=== PATIENT | female | born 1945 | race Hispanic/Latino ===

== ENCOUNTER → 2017-09-19 | Outpatient (CLI) | payer OTHER, MEDICARE ==
[~2017-09-19] MED LIST: ACET-2743 PO; ALEN70TA47 PO; AMLO10TA2 PO; ASPI-1197 PO; ATOR10TA PO; CLOP75TA32 PO; DIAZ2TAB PO; PANT20TA PO
== END | disposition home or self-care (01) ==
LOC: RAH 10:01
PROVIDERS: ATTEND Internal Medicine
DX: Z12.31 Encounter for screening mammogram for malignant neoplasm of breast (principal)
CPT/HCPCS: 77067

== ENCOUNTER → 2017-12-05 | Outpatient (CLI) | payer OTHER, MEDICARE | END | disposition home or self-care (01) | LOC: SHCH 09:18 | PROVIDERS: ATTEND Internal Medicine Cardiovascular Disease | DX: R09.89 Other specified symptoms and signs involving the circulatory and respiratory systems (principal); I73.9 Peripheral vascular disease, unspecified; I65.23 Occlusion and stenosis of bilateral carotid arteries | CPT/HCPCS: 93880; 93925 ==

== ENCOUNTER → 2019-03-19 | Outpatient (CLI) | payer OTHER, MEDICARE ==
[~2019-03-19] MED LIST changes: +ALEN70TA10 PO; -ALEN70TA47 PO; -AMLO10TA2 PO; +AMLO10TA7 PO; +AMLO5TAB9 PO; +LISI-617 PO; +moringa
== END | disposition home or self-care (01) ==
LOC: RAH 13:37
PROVIDERS: ATTEND Internal Medicine
DX: M17.12 Unilateral primary osteoarthritis, left knee (principal)
CPT/HCPCS: 73562

== ENCOUNTER 2019-03-20 08:48 | Observation (INO) | payer OTHER, MEDICARE ==
[~2019-03-20] VITALS: Ht 149.9 cm; Wt 64.0 kg
[~2019-03-20 08:48] MED LIST changes: -AMLO5TAB9 PO; -LISI-617 PO; -moringa
[2019-03-20] MEDS ORDERED: SODIUM CHLORIDE 0.9% 250 ML IV ONE (10:08)
[2019-03-20 10:47] LABS: APPEARANCE,URINE CLEAR (CLEAR); BILIRUBIN,URINE NEGATIVE (NEGATIVE); COLOR,URINE YELLOW (YELLOW); GLUCOSE, URINE (UA) NEGATIVE (NEGATIVE); KETONES,URINE NEGATIVE (NEGATIVE); LEUKOCYTE ESTERASE ,URINE NEGATIVE (NEGATIVE); NITRATE,URINE NEGATIVE (NEGATIVE); OCCULT BLOOD,URINE NEGATIVE (NEGATIVE); PROTEIN,URINE NEGATIVE (NEGATIVE); UROBILINOGEN,URINE 0.2 mg/dL (0.2-1.0)
[2019-03-20] MEDS ORDERED: CEFTRIAXONE SODIUM 1 GM ONE (11:20)
[2019-03-20] MEDS ORDERED: DiphenhydrAMINE HCL 50 MG/ML VIAL IV PRN (12:15)
[2019-03-20] MEDS ORDERED: ACETAMINOPHEN 325 MG TAB PO PRN ×2 (12:15)
[2019-03-20] MEDS: CEFTRIAXONE SODIUM 1 GM IVP SCH (12:15)
[2019-03-20] MEDS ORDERED: GUAIFENESIN-DM 200/20 MG 10 ML PO PRN (12:15)
[2019-03-20] MEDS ORDERED: ONDANSETRON HCL 4 MG/2 ML VIAL IV PRN (12:15)
[2019-03-20] MEDS ORDERED: MAG HYDROX/AL HYDROX/SIMETH ES 30 ML SUSP UDCUP PO PRN (12:15)
[2019-03-20] MEDS ORDERED: ZOLPIDEM TARTRATE 5 MG TAB PO PRN (12:15)
[2019-03-20] MEDS ORDERED: LACTULOSE 20 GM/30 ML UDCUP PO PRN (12:15)
[2019-03-20] MEDS ORDERED: DIPHENHYDRAMINE HCL 25 MG CAPSULE PO PRN (12:15)
[2019-03-20] MEDS ORDERED: NITROGLYCERIN 0.4 MG SL TAB SL PRN (12:15)
[2019-03-20] MEDS ORDERED: LIDOCAINE HCL-MPF 1% 2ML VIAL IVP PRN ×2 (12:30)
[2019-03-20] MEDS ORDERED: POTASSIUM CHLORIDE 10MEQ/100ML 100 ML IV PRN ×2 (12:30)
[2019-03-20] MEDS ORDERED: POTASSIUM CHLORIDE 20 MEQ ERTAB PO PRN (12:30)
[2019-03-20] MEDS ORDERED: POTASSIUM CHLORIDE 10% ELIXIR 20 MEQ/15 ML UDCUP PO PRN (12:30)
[2019-03-20 13:44] LABS: EOSINOPHILS % (AUTO) 2.2 % (0.0-8.0); LYMPHOCYTES % (AUTO) 29.4 % (21.0-51.0); MEAN CORPUSCULAR HEMOGLOBIN 30.3 pg (27.0-33.0); MEAN CORPUSCULAR HGB CONC 33.6 g/dL (32.0-36.0); MEAN CORPUSCULAR VOLUME 90.2 fL (79-99); MONOCYTES % (AUTO) 10.5 % (3.0-13.0); NEUTROPHILS % (AUTO) 56.9 % (40.0-77.0); PLATELET COUNT (AUTO) 258 K/uL (130-400); RED BLOOD CELL COUNT(AUTO) 4.55 MIL/uL (4.00-5.50); RED CELL DISTRIBUTION WIDTH 15.5 % (11.0-15.5); WHITE BLOOD COUNT (AUTO) 5.8 K/uL (4.8-10.8)
[2019-03-20 13:50] LABS: CREATININE 0.5 mg/dL (0.5-1.5); POTASSIUM 3.8 mmol/L (3.5-5.1)
[2019-03-20 13:55] LABS: ALBUMIN 3.8 g/dL (3.5-5.0); BILIRUBIN,TOTAL 0.3 mg/dL (0.2-1.0); TOTAL PROTEIN, SERUM 6.8 g/dL (6.0-8.3)
[2019-03-20 14:16] VITALS: BP 149/75
[2019-03-20] MEDS: SODIUM CHLORIDE 0.9% 1000ML 1,000 ML IV SCH (14:25)
[2019-03-20] MEDS ORDERED: LISI-617 PO (14:31)
[2019-03-20] MEDS ORDERED: AMLO5TAB9 PO (14:31)
[2019-03-20] MEDS ORDERED: moringa (14:33)
[2019-03-20 16:39] VITALS: BP 161/75
--- NOTE | 2019-03-20 17:55 | NUR ---
CLARIFIED ORDER FOR US RENAL SONO: DR. SOTELO STATED WAS TO DETERMINE IF PT WAS RETAINING URINE. ORDER'S REC'D TO CANCEL SONO AND ORDER POST VOID BLADDER SCAN INSTEAD. 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
--- NOTE | 2019-03-20 18:00 | NUR ---
POST VOID BLADDER SCAN OF [address] SOTELO. NO NEW ORDERS.
[2019-03-20 19:49] VITALS: BP 113/51
[2019-03-20] MEDS: FAMOTIDINE 20MG TAB 20 MG TAB PO SCH (21:19)
[2019-03-21] VITALS (9 sets, daily range): BP systolic 70–198; BP diastolic 50–102
[2019-03-21] MEDS: SODIUM CHLORIDE 0.9% 1000ML 1,000 ML IV SCH ×4 (00:54→20:29)
[2019-03-21] MEDS: CEFTRIAXONE SODIUM 1 GM IVP SCH ×3 (00:54→23:31)
[2019-03-21] MEDS: ENOXAPARIN SODIUM 30 MG/0.3 ML SQ SCH (08:57)
[2019-03-21] MEDS: FAMOTIDINE 20MG TAB 20 MG TAB PO SCH ×2 (08:57→20:28)
[2019-03-22 04:00] VITALS: BP 94/66
[2019-03-22 05:45] LABS: BASOPHILS % (AUTO) 0.9 % (0.0-5.0); EOSINOPHILS % (AUTO) 3.3 % (0.0-8.0); HEMATOCRIT 41.8 % (36-48); LYMPHOCYTES % (AUTO) 30.9 % (21.0-51.0); MEAN CORPUSCULAR HEMOGLOBIN 30.2 pg (27.0-33.0); MEAN CORPUSCULAR HGB CONC 33.1 g/dL (32.0-36.0); MEAN CORPUSCULAR VOLUME 91.4 fL (79-99); MONOCYTES % (AUTO) 11.7 % (3.0-13.0); NEUTROPHILS % (AUTO) 53.2 % (40.0-77.0); PLATELET COUNT (AUTO) 216 K/uL (130-400); RED BLOOD CELL COUNT(AUTO) 4.57 MIL/uL (4.00-5.50); RED CELL DISTRIBUTION WIDTH 15.5 % (11.0-15.5); WHITE BLOOD COUNT (AUTO) 5.9 K/uL (4.8-10.8)
[2019-03-22 05:55] LABS: CREATININE 0.7 mg/dL (0.5-1.5); POTASSIUM 3.4 mmol/L (3.5-5.1)
[2019-03-22 08:11] VITALS: BP 132/67
[2019-03-22] MEDS: FAMOTIDINE 20MG TAB 20 MG TAB PO SCH (08:27)
[2019-03-22] MEDS: ENOXAPARIN SODIUM 30 MG/0.3 ML SQ SCH (08:28)
--- NOTE | 2019-03-22 09:00 | NUR ---
INITIAL- DC PLANNING SPOKE WITH PT, GRAND DAUGHTER, AND BROTHER IN ROOM- PT HIGH FALL RISK, Cami BILL, LIVES ALONE , NO STAIRS REQUESTING P-TX W HOME HEALTH OR IN SNF Addendum: 03/22/19 at 1243 by JULIA KIMBALL RN CM Amended: Links added.
[2019-03-22 11:25] VITALS: BP 156/70
[2019-03-22] MEDS: CEFTRIAXONE SODIUM 1 GM IVP SCH (11:46)
--- NOTE | 2019-03-22 13:54 | NUR ---
[facility] Kai [facility]. Kai contacted Karen,pt advocate who will assist pt.
--- NOTE | 2019-03-22 14:19 | NUR ---
FAXED REFERRAL INCLUDING PASSR TO [facility]. WILL POST TO CHART AND INFORM PRIMARY RN. SPOKE TO REP HAMILTON FROM [facility]. SHE WILL BE WAITING FOR THE AUTH RQUEST FORM [facility] Addendum: 03/22/19 at 1421 by JULIA KIMBALL RN Amended: Links added.
[2019-03-22 16:11] VITALS: BP 176/78
--- NOTE | 2019-03-22 16:57 | NUR ---
LIANNE MCWILLIAMS'[facility] CALL TO [facility] AT 1654. CALL BACK AT 1657- LIANNE MCWILLIAMS'Lawrence. ADVISED PRIMARY RN AND GAVE NUMBERS TO CALL AT 1730. WILL TRAVEL BY FACILITY [facility] Addendum: 03/23/19 at 0853 by JULIA KIMBALL RN CM Amended: Links added.
--- NOTE | 2019-03-22 17:19 | NUR ---
REPORT TELEPHONE REPORT WAS CALLED IN TO KLAUDIA NAPIER AT [facility]. THEY WILL SEND BARBER INSTRUCTOR TO PICK PATIENT UP FOR TRANSPORT.
--- NOTE | 2019-03-22 17:20 | NUR ---
INSTRUCTIONS DISCHARGE INSTRUCTIONS GIVEN TO PATIENT AND FAMILY USING TEACH BACK. IV REMOVED WITH TIP INTACT. DIRECT PRESSURE APPLIED UNTIL BLEEDING CONTROLLED THEN SITE COVERED WITH GAUZE AND SECURED WITH TAPE. NO QUESTIONS OR CONCERNS VOICED.
[2019-03-23] MEDS ORDERED: CLOPIDOGREL BISULFATE 75 MG TAB PO SCH (09:00)
[2019-03-23] MEDS ORDERED: LISINOPRIL 5 MG TABLET PO SCH (09:00)
[2019-03-23] MEDS ORDERED: AMLODIPINE BESYLATE 5 MG TAB PO SCH (09:00)
[2019-03-23] MEDS ORDERED: ASPIRIN 81MG TAB.CHEW PO SCH (09:00)
== END 2019-03-22 18:10 ==
LOC: EDH 08:48 → EDHIP 12:14 → 4AH 13:50
PROVIDERS: ADMIT Family Medicine; ATTEND Family Medicine
DX: N39.0 Urinary tract infection, site not specified (principal); E44.0 Moderate protein-calorie malnutrition; E78.5 Hyperlipidemia, unspecified; I10 Essential (primary) hypertension; I71.4 Abdominal aortic aneurysm, without rupture; I95.1 Orthostatic hypotension; M43.10 Spondylolisthesis, site unspecified; Z82.49 Family history of ischemic heart disease and other diseases of the circulatory system; Z83.3 Family history of diabetes mellitus; Z89.611 Acquired absence of right leg above knee; Z90.710 Acquired absence of both cervix and uterus; Z79.899 Other long term (current) drug therapy
CPT/HCPCS: 36415 ×2; 74176; 80048; 80053; 81003; 82948; 85025 ×2; 87040; 87088; 87804 ×2; 93970; 94760; 96372 ×2; 96374; 96376 ×2; 97039 ×3; 97161; 97530; 99284; A4606; G0378 ×54; G8979; G8981; G8982; G8983; J0696 ×5; J1650 ×2; J7030 ×3

== ENCOUNTER → 2019-07-07 | Outpatient (CLI) | payer OTHER, MEDICARE ==
[~2019-07-07] MED LIST changes: -ACET-2743 PO; -AMLO10TA7 PO; +AMLO5TAB9 PO; -ATOR10TA PO; -DIAZ2TAB PO; +LISI-617 PO; -PANT20TA PO; +moringa
== END | disposition home or self-care (01) ==
LOC: SHCH 10:37
PROVIDERS: ATTEND Internal Medicine Cardiovascular Disease
DX: I35.8 Other nonrheumatic aortic valve disorders (principal); I65.23 Occlusion and stenosis of bilateral carotid arteries; R01.1 Cardiac murmur, unspecified; Z98.61 Coronary angioplasty status
CPT/HCPCS: 93306; 93880

== ENCOUNTER → 2020-10-26 | Outpatient (CLI) | payer OTHER, MEDICARE ==
[~2020-10-26] MED LIST changes: -ALEN70TA10 PO; +ALEN70TA80 PO; +AMLO-257 PO; -AMLO5TAB9 PO; -LISI-617 PO; +LISI-809 PO
== END | disposition home or self-care (01) ==
LOC: SHCH 08:38
PROVIDERS: ATTEND Internal Medicine Cardiovascular Disease
DX: I65.23 Occlusion and stenosis of bilateral carotid arteries (principal); I73.9 Peripheral vascular disease, unspecified; R01.1 Cardiac murmur, unspecified
CPT/HCPCS: 93306; 93356; 93880; 93926

== ENCOUNTER 2021-10-26 10:25 | Inpatient (IN) | payer OTHER, MEDICARE ==
[~2021-10-26] VITALS: Ht 149.9 cm; Wt 59.6 kg
[~2021-10-26 10:25] MED LIST changes: -LISI-809 PO; +LISI5TAB21 PO
[2021-10-26 11:01] LABS: BASOPHILS % (AUTO) 0.8 % (0.0-5.0); EOSINOPHILS % (AUTO) 0.5 % (0.0-8.0); HEMATOCRIT 23.5 % (36-48); LYMPHOCYTES % (AUTO) 18.9 % (21.0-51.0); MEAN CORPUSCULAR HGB CONC 28.1 g/dL (32.0-36.0); MEAN CORPUSCULAR VOLUME 67.5 fL (79-99); MONOCYTES % (AUTO) 9.8 % (3.0-13.0); NEUTROPHILS % (AUTO) 69.7 % (40.0-77.0); PLATELET COUNT (AUTO) 463 K/uL (130-400); RED BLOOD CELL COUNT(AUTO) 3.48 MIL/uL (4.00-5.50); RED CELL DISTRIBUTION WIDTH 20.7 % (11.0-15.5); WHITE BLOOD COUNT (AUTO) 6.1 K/uL (4.8-10.8)
[2021-10-26 11:11] LABS: CREATININE 0.7 mg/dL (0.5-1.5); POTASSIUM 4.2 mmol/L (3.5-5.1)
[2021-10-26 11:16] LABS: ALBUMIN 3.6 g/dL (3.5-5.0); BILIRUBIN,TOTAL 0.2 mg/dL (0.2-1.0); TOTAL PROTEIN, SERUM 6.9 g/dL (6.0-8.3)
[2021-10-26 12:22] LABS: INR 1.03 (0.85-1.15); PROTHROMBIN TIME 11.2 SEC (9.6-11.6)
[2021-10-26 12:24] LABS: PARTIAL THROMBOPLASTIN TIME 25.4 SEC (26.3-35.5)
[2021-10-26] MEDS ORDERED: ONDANSETRON 4MG INJ ONE (12:42)
[2021-10-26] MEDS ORDERED: MORPHINE 2 MG SYG ONE (12:43)
[2021-10-26] MEDS ORDERED: VANCOMYCIN 1G/250ML KIT 250 ML IV ONE (12:43)
[2021-10-26] MEDS ORDERED: ZOSYN 3.375GM+NS 50ML 50 ML ONE (12:43)
[2021-10-26] MEDS ORDERED: 0.9%NACL 50ML 50 ML IV ONE (12:44)
[2021-10-26] MEDS ORDERED: 0.9% NACL 500ML IV.SOLN 500 ML IV ONE ×3 (12:45→14:23)
[2021-10-26] MEDS ORDERED: ZOSYN 3.375GM +NS 50ML IV SCH (13:00)
[2021-10-26] MEDS ORDERED: VANCOMYCIN 1G VIAL IVPB ONE (13:00)
[2021-10-26] MEDS ORDERED: ONDANSETRON 4MG INJ IVP ONE (13:00)
[2021-10-26] MEDS ORDERED: MORPHINE 2 MG SYG IVP ONE (13:00)
[2021-10-26] MEDS ORDERED: IOHEXOL 350 MG/ML 100ML INFUS..BTL IV ONE (13:21)
[2021-10-26] MEDS ORDERED: PANTOPRAZOLE 40 MG/VIAL IVP ONE (17:00)
[2021-10-26] MEDS ORDERED: VANCOMYCIN 750MG VIAL IVPB SCH (17:30)
[2021-10-26 17:50] LABS: RETICULOCYTE % (AUTO) 1.87 % (0.42-2.23)
[2021-10-26 18:02] LABS: HEMOGLOBIN A1C 6.5 % (4.0-6.0)
[2021-10-26] MEDS ORDERED: PANTOPRAZOLE 40 MG/VIAL ONE (18:12)
[2021-10-26] MEDS: CEFEPIME HCL 2 GM VIAL IVP SCH (18:14)
[2021-10-26 19:01] LABS: HEMATOCRIT 29.9 % (36-48)
[2021-10-26] MEDS: PANTOPRAZOLE 40 MG/VIAL IVP SCH (22:12)
[2021-10-26] MEDS: IRON SUCROSE COMPLEX 100 MG in 0.9%NACL 50ML 50 ML IV SCH (22:12)
[2021-10-26] MEDS: INSULIN HUMULIN R 100 UNIT/ML 3ML SQ SCH (22:12)
[2021-10-27] MEDS ORDERED: VANCOMYCIN PROTOCOL PER PHARMACY IV SCH
[2021-10-27] MEDS: HYDROCODONE/ACETAMINOPHEN 5/325 MG TAB PO PRN ×5 (00:05→22:25)
[2021-10-27] MEDS ORDERED: 0.9%NACL 50ML 50 ML IV ONE (06:15)
[2021-10-27] MEDS: CEFEPIME HCL 2 GM VIAL IVP SCH ×2 (06:18→16:54)
[2021-10-27] MEDS: PANTOPRAZOLE 40 MG/VIAL IVP SCH ×2 (08:26→22:17)
[2021-10-27] MEDS: IRON SUCROSE COMPLEX 100 MG in 0.9%NACL 50ML 50 ML IV SCH (08:26)
[2021-10-27] MEDS: INSULIN HUMULIN R 100 UNIT/ML 3ML SQ SCH ×4 (08:26→21:00)
[2021-10-27] MEDS: HYDROMORPHONE 0.5 MG SYG (0.5MG/0.5ML) IVP PRN (08:28)
[2021-10-27 11:52] LABS: HEMATOCRIT 25.9 % (36-48)
[2021-10-27 12:17] LABS: CREATININE 0.6 mg/dL (0.5-1.5); POTASSIUM 3.8 mmol/L (3.5-5.1)
[2021-10-27] MEDS: NYSTATIN 30 GM CREAM.GM. TP SCH (12:30)
[2021-10-27] MEDS: 0.9% NACL 250ML 250 ML IV SCH (13:24)
[2021-10-27] MEDS: VANCOMYCIN 750MG VIAL IVPB SCH (13:24)
[2021-10-27] MEDS ORDERED: CLOPIDOGREL 75MG TAB ONE (18:24)
[2021-10-27] MEDS ORDERED: CLOPIDOGREL 75MG TAB PO ONE (18:30)
[2021-10-27 20:00] VITALS: BP 128/48
[2021-10-27 23:17] VITALS: BP 111/55
[2021-10-28 03:36] VITALS: BP 107/66
[2021-10-28] MEDS: CEFEPIME HCL 2 GM VIAL IVP SCH ×2 (06:27→17:40)
[2021-10-28] MEDS: HYDROMORPHONE 0.5 MG SYG (0.5MG/0.5ML) IVP PRN (06:34)
[2021-10-28 07:00] VITALS: BP 138/69
[2021-10-28] MEDS: INSULIN HUMULIN R 100 UNIT/ML 3ML SQ SCH ×4 (07:30→21:00)
[2021-10-28] MEDS: PANTOPRAZOLE 40 MG/VIAL IVP SCH ×2 (08:12→21:39)
[2021-10-28] MEDS: NYSTATIN 30 GM CREAM.GM. TP SCH (08:14)
[2021-10-28] MEDS ORDERED: CLOPIDOGREL 75MG TAB PO SCH (09:00)
[2021-10-28] MEDS: IRON SUCROSE COMPLEX 100 MG/5 ML VIAL IVP SCH (09:00)
[2021-10-28 11:00] VITALS: BP 145/75
[2021-10-28] MEDS: HYDROCODONE/ACETAMINOPHEN 5/325 MG TAB PO PRN ×2 (11:36→17:40)
[2021-10-28 15:00] VITALS: BP 112/60
[2021-10-28] MEDS: VANCOMYCIN 750MG VIAL IVPB SCH (15:24)
[2021-10-28 16:18] LABS: HEMATOCRIT 26.8 % (36-48); MEAN CORPUSCULAR HEMOGLOBIN 20.7 pg (27.0-33.0); MEAN CORPUSCULAR HGB CONC 29.1 g/dL (32.0-36.0); MEAN CORPUSCULAR VOLUME 71.1 fL (79-99); PLATELET COUNT (AUTO) 326 K/uL (130-400); RED BLOOD CELL COUNT(AUTO) 3.77 MIL/uL (4.00-5.50); RED CELL DISTRIBUTION WIDTH 22.1 % (11.0-15.5); WHITE BLOOD COUNT (AUTO) 6.9 K/uL (4.8-10.8)
[2021-10-28 16:35] LABS: POTASSIUM 3.6 mmol/L (3.5-5.1)
[2021-10-28 16:36] LABS: CREATININE 0.5 mg/dL (0.5-1.5)
[2021-10-28 17:08] LABS: EOSINOPHILS % (MANUAL) 3 % (1-6); LYMPHOCYTES % (MANUAL) 13 % (22-44); MAN.DIFF COMMENT-IMPRESSION MANUAL DIFFERENTIAL; MONOCYTES % (MANUAL) 25 % (2-9); PLATELET MORPHOLOGY COMMENT ADEQUATE; SEGMENTED NEUTROPHILS % 59 % (40-70)
[2021-10-28 20:00] VITALS: BP 120/48
[2021-10-28 23:46] VITALS: BP 134/61
[2021-10-29 04:31] VITALS: BP 145/73
[2021-10-29 04:33] LABS: EOSINOPHILS % (AUTO) 9.3 % (0.0-8.0); HEMATOCRIT 26.5 % (36-48); MEAN CORPUSCULAR HEMOGLOBIN 20.4 pg (27.0-33.0); MEAN CORPUSCULAR HGB CONC 28.7 g/dL (32.0-36.0); NEUTROPHILS % (AUTO) 68.3 % (40.0-77.0); PLATELET COUNT (AUTO) 309 K/uL (130-400); RED BLOOD CELL COUNT(AUTO) 3.73 MIL/uL (4.00-5.50); RED CELL DISTRIBUTION WIDTH 22.5 % (11.0-15.5); WHITE BLOOD COUNT (AUTO) 7.1 K/uL (4.8-10.8)
[2021-10-29 04:48] LABS: CREATININE 0.5 mg/dL (0.5-1.5); POTASSIUM 3.5 mmol/L (3.5-5.1)
[2021-10-29] MEDS: CEFEPIME HCL 2 GM VIAL IVP SCH ×2 (04:57→18:06)
[2021-10-29] MEDS: HYDROMORPHONE 0.5 MG SYG (0.5MG/0.5ML) IVP PRN ×2 (04:58→19:51)
[2021-10-29 07:30] VITALS: BP 128/62
[2021-10-29] MEDS: INSULIN HUMULIN R 100 UNIT/ML 3ML SQ SCH ×4 (07:30→19:45)
[2021-10-29] MEDS: PANTOPRAZOLE 40 MG/VIAL IVP SCH ×2 (09:28→19:44)
[2021-10-29] MEDS: IRON SUCROSE COMPLEX 100 MG/5 ML VIAL IVP SCH (09:28)
[2021-10-29] MEDS: NYSTATIN 30 GM CREAM.GM. TP SCH (09:29)
[2021-10-29 11:00] VITALS: BP 128/48
[2021-10-29] MEDS: CYANOCOBALAMIN (VITAMIN B-12) 1000 MCG/ML 1ML VIAL IM SCH (15:03)
[2021-10-29] MEDS: VANCOMYCIN 750MG VIAL IVPB SCH (15:03)
[2021-10-29 16:30] VITALS: BP 136/58
[2021-10-29 20:28] VITALS: BP 147/61
[2021-10-29] MEDS: HYDROCODONE/ACETAMINOPHEN 5/325 MG TAB PO PRN (22:32)
[2021-10-30] VITALS (14 sets, daily range): BP systolic 116–169; BP diastolic 40–101
[2021-10-30 04:08] LABS: BASOPHILS % (AUTO) 0.2 % (0.0-5.0); EOSINOPHILS % (AUTO) 10.8 % (0.0-8.0); HEMATOCRIT 27.1 % (36-48); LYMPHOCYTES % (AUTO) 12.8 % (21.0-51.0); MEAN CORPUSCULAR HEMOGLOBIN 20.5 pg (27.0-33.0); MEAN CORPUSCULAR HGB CONC 28.4 g/dL (32.0-36.0); MEAN CORPUSCULAR VOLUME 72.3 fL (79-99); NEUTROPHILS % (AUTO) 60.7 % (40.0-77.0); PLATELET COUNT (AUTO) 306 K/uL (130-400); RED BLOOD CELL COUNT(AUTO) 3.75 MIL/uL (4.00-5.50); RED CELL DISTRIBUTION WIDTH 23.7 % (11.0-15.5); WHITE BLOOD COUNT (AUTO) 5.5 K/uL (4.8-10.8)
[2021-10-30 04:18] LABS: % IRON SATURATION 6.3 % (22-44)
[2021-10-30 04:27] LABS: CREATININE 0.5 mg/dL (0.5-1.5); POTASSIUM 3.1 mmol/L (3.5-5.1)
[2021-10-30] MEDS: CEFEPIME HCL 2 GM VIAL IVP SCH ×2 (04:49→16:37)
[2021-10-30] MEDS: INSULIN HUMULIN R 100 UNIT/ML 3ML SQ SCH ×4 (05:22→20:24)
[2021-10-30] MEDS ORDERED: POTASSIUM CHLORIDE 20MEQ/100ML 100 ML IV PRN (07:30)
[2021-10-30] MEDS ORDERED: POTASSIUM CHLORIDE 10% ELIXIR 20 MEQ/15 ML UDCUP PO PRN (07:30)
[2021-10-30] MEDS ORDERED: LIDOCAINE HCL-MPF 1% 2ML VIAL IV PRN (07:30)
[2021-10-30] MEDS: ASCORBIC ACID 500 MG TAB PO SCH (09:09)
[2021-10-30] MEDS: IRON SUCROSE COMPLEX 100 MG/5 ML VIAL IVP SCH (09:09)
[2021-10-30] MEDS: PANTOPRAZOLE 40 MG/VIAL IVP SCH (09:09)
[2021-10-30] MEDS: ZINC SULFATE 220 CAPSULE PO SCH (09:09)
[2021-10-30] MEDS: CYANOCOBALAMIN (VITAMIN B-12) 1000 MCG/ML 1ML VIAL IM SCH (09:10)
[2021-10-30] MEDS: NYSTATIN 30 GM CREAM.GM. TP SCH (09:11)
[2021-10-30] MEDS: HYDROMORPHONE 0.5 MG SYG (0.5MG/0.5ML) IVP PRN (11:33)
[2021-10-30] MEDS ORDERED: PROPOFOL 10 MG/ML 20ML VIAL IV ONE (13:05)
[2021-10-30] MEDS ORDERED: GLYCOPYRROLATE 0.2 MG/ML 5 ML VIAL ONE (13:10)
[2021-10-30] MEDS: VANCOMYCIN 750MG VIAL IVPB SCH (14:17)
[2021-10-30] MEDS: KCL 20 MEQ ERTAB PO PRN ×3 (16:38→18:13)
[2021-10-30] MEDS: HYDROCODONE/ACETAMINOPHEN 5/325 MG TAB PO PRN (19:54)
[2021-10-31] VITALS (7 sets, daily range): BP systolic 115–159; BP diastolic 45–74
[2021-10-31] MEDS: CEFEPIME HCL 2 GM VIAL IVP SCH (04:11)
[2021-10-31] MEDS: HYDROMORPHONE 0.5 MG SYG (0.5MG/0.5ML) IVP PRN (04:12)
[2021-10-31 04:33] LABS: BASOPHILS % (AUTO) 0.2 % (0.0-5.0); EOSINOPHILS % (AUTO) 6.1 % (0.0-8.0); HEMATOCRIT 28.5 % (36-48); LYMPHOCYTES % (AUTO) 7.5 % (21.0-51.0); MEAN CORPUSCULAR HEMOGLOBIN 20.8 pg (27.0-33.0); MEAN CORPUSCULAR HGB CONC 28.4 g/dL (32.0-36.0); MEAN CORPUSCULAR VOLUME 73.1 fL (79-99); MONOCYTES % (AUTO) 10.6 % (3.0-13.0); NEUTROPHILS % (AUTO) 75.2 % (40.0-77.0); PLATELET COUNT (AUTO) 287 K/uL (130-400); RED CELL DISTRIBUTION WIDTH 24.6 % (11.0-15.5); WHITE BLOOD COUNT (AUTO) 8.1 K/uL (4.8-10.8)
[2021-10-31 05:26] LABS: CREATININE 0.6 mg/dL (0.5-1.5)
[2021-10-31] MEDS: INSULIN HUMULIN R 100 UNIT/ML 3ML SQ SCH ×4 (05:55→21:45)
[2021-10-31] MEDS: ZINC SULFATE 220 CAPSULE PO SCH (09:14)
[2021-10-31] MEDS: NYSTATIN 30 GM CREAM.GM. TP SCH (09:14)
[2021-10-31] MEDS: PANTOPRAZOLE 40 MG TAB DR PO SCH (09:14)
[2021-10-31] MEDS: IRON SUCROSE COMPLEX 100 MG/5 ML VIAL IVP SCH (09:14)
[2021-10-31] MEDS: ASCORBIC ACID 500 MG TAB PO SCH (09:14)
[2021-10-31] MEDS: CYANOCOBALAMIN (VITAMIN B-12) 1000 MCG/ML 1ML VIAL IM SCH (09:15)
[2021-10-31] MEDS: VANCOMYCIN 750MG VIAL IVPB SCH (13:56)
[2021-10-31] MEDS: 0.9% NACL 250ML 250 ML IV SCH (13:57)
[2021-10-31] MEDS: MEROPENEM 1 GM VIAL IVP SCH ×2 (16:59→23:38)
[2021-10-31] MEDS: HYDROCODONE/ACETAMINOPHEN 5/325 MG TAB PO PRN (23:39)
[2021-11-01 04:01] LABS: BASOPHILS % (AUTO) 0.3 % (0.0-5.0); HEMATOCRIT 28.2 % (36-48); LYMPHOCYTES % (AUTO) 15.2 % (21.0-51.0); MEAN CORPUSCULAR HEMOGLOBIN 20.9 pg (27.0-33.0); MEAN CORPUSCULAR HGB CONC 28.7 g/dL (32.0-36.0); MEAN CORPUSCULAR VOLUME 72.9 fL (79-99); MONOCYTES % (AUTO) 16.4 % (3.0-13.0); NEUTROPHILS % (AUTO) 59.6 % (40.0-77.0); PLATELET COUNT (AUTO) 268 K/uL (130-400); RED BLOOD CELL COUNT(AUTO) 3.87 MIL/uL (4.00-5.50); RED CELL DISTRIBUTION WIDTH 25.4 % (11.0-15.5); WHITE BLOOD COUNT (AUTO) 6.5 K/uL (4.8-10.8)
[2021-11-01 04:12] LABS: CREATININE 0.6 mg/dL (0.5-1.5); POTASSIUM 3.4 mmol/L (3.5-5.1)
[2021-11-01 04:16] VITALS: BP 155/68
[2021-11-01] MEDS: INSULIN HUMULIN R 100 UNIT/ML 3ML SQ SCH ×2 (05:58→11:30)
[2021-11-01 08:03] VITALS: BP 147/81
[2021-11-01] MEDS: ASCORBIC ACID 500 MG TAB PO SCH (09:17)
[2021-11-01] MEDS: PANTOPRAZOLE 40 MG TAB DR PO SCH (09:18)
[2021-11-01] MEDS: CYANOCOBALAMIN (VITAMIN B-12) 1000 MCG/ML 1ML VIAL IM SCH (09:18)
[2021-11-01] MEDS: IRON SUCROSE COMPLEX 100 MG/5 ML VIAL IVP SCH (09:18)
[2021-11-01] MEDS: ZINC SULFATE 220 CAPSULE PO SCH (09:18)
[2021-11-01] MEDS: MEROPENEM 1 GM VIAL IVP SCH ×2 (09:19→14:37)
[2021-11-01] MEDS: NYSTATIN 30 GM CREAM.GM. TP SCH (09:21)
[2021-11-01 11:12] VITALS: BP 143/74
[2021-11-01] MEDS ORDERED: EPOETIN ALFA-EPBX (NON-ESRD) 10,000 UNIT/ML VIAL SQ SCH (13:00)
[2021-11-01] MEDS ORDERED: MORPHINE 4 MG SYG IV PRN (13:00)
[2021-11-01] MEDS ORDERED: LISINOPRIL 10 MG TABLET PO SCH (13:00)
[2021-11-01] MEDS ORDERED: KCL 20 MEQ ERTAB PO SCH (13:00)
[2021-11-01] MEDS ORDERED: MORPHINE 2 MG SYG IVP PRN ×2 (13:00→13:30)
[2021-11-01] MEDS ORDERED: AMLODIPINE 5 MG TAB PO SCH (13:00)
[2021-11-01 16:28] VITALS: BP 121/86
[2021-11-01] MEDS ORDERED: SODIUM HYPOCHLORITE 0.125% 473 ML SOLUTION TP SCH (21:00)
== END 2021-11-01 18:19 | DRG 299 ==
LOC: EDH 10:25 → EDHIP 17:04 → 4AH 10-27 19:42
PROVIDERS: ADMIT Internal Medicine; ATTEND Internal Medicine
PROC: 30233N1 Transfusion of Nonautologous Red Blood Cells into Peripheral Vein, Percutaneous Approach (ICD-10-PCS; 2021-10-26)
PROC: 0DJ08ZZ Inspection of Upper Intestinal Tract, Via Natural or Artificial Opening Endoscopic (ICD-10-PCS; principal; 2021-10-30)
DX: E11.52 Type 2 diabetes mellitus with diabetic peripheral angiopathy with gangrene (principal); K22.6 Gastro-esophageal laceration-hemorrhage syndrome; L97.329 Non-pressure chronic ulcer of left ankle with unspecified severity; D62 Acute posthemorrhagic anemia; L03.116 Cellulitis of left lower limb; I70.262 Atherosclerosis of native arteries of extremities with gangrene, left leg; E87.1 Hypo-osmolality and hyponatremia; Z16.24 Resistance to multiple antibiotics; Z16.12 Extended spectrum beta lactamase (ESBL) resistance; E78.5 Hyperlipidemia, unspecified; I10 Essential (primary) hypertension; Z20.822 Contact with and (suspected) exposure to COVID-19; L97.529 Non-pressure chronic ulcer of other part of left foot with unspecified severity; F17.210 Nicotine dependence, cigarettes, uncomplicated; E11.621 Type 2 diabetes mellitus with foot ulcer; G54.6 Phantom limb syndrome with pain; B96.4 Proteus (mirabilis) (morganii) as the cause of diseases classified elsewhere; B35.3 Tinea pedis; D50.9 Iron deficiency anemia, unspecified; R54 Age-related physical debility; M81.0 Age-related osteoporosis without current pathological fracture; Z60.2 Problems related to living alone; I70.0 Atherosclerosis of aorta; I71.4 Abdominal aortic aneurysm, without rupture; Z99.3 Dependence on wheelchair; Z90.710 Acquired absence of both cervix and uterus; Z89.611 Acquired absence of right leg above knee; Z83.3 Family history of diabetes mellitus; Z71.6 Tobacco abuse counseling
CPT/HCPCS: 36415; 43235; 73630; 74177; 80048; 80053; 80202; 82040; 82270; 82607; 82728; 82746; 82948; 83036; 83540; 83550; 84145; 84443; 84484; 85014; 85018; 85025; 85045; 85610; 85651; 85730; 86140; 86850; 86900; 86901; 86923; 87070; 87077; 87186; 87635; 93005; 93926; 93971; C9113; G0378; J0692; J1170; J1756; J1815; J2185; J2270; J2405; J2543; J2704; J3370; J3420; J3490; J7030; J7040; P9016; Q9967